=== PATIENT | female | born 1930 | race Native Hawaiian/Other Pacific Islander ===

== ENCOUNTER 2018-11-17 20:20 | Inpatient (IN) | payer MEDICARE, BC ==
--- NOTE | 2018-11-17 20:48 | ED PDOC ---
Arrival/HPI - General Chief Complaint: Dizziness/Lightheaded Time Seen by Provider: 11/17/18 20:47 Historian: Family (Son) - History of Present Illness Narrative History of Present Illness (Text): 11/17/18 20:47 An 88 year old female, whose past medical history includes HTN, HLD, DM, and emphysema, is brought into the emergency department by son for a complaint of sudden onset dizziness, nausea, and unsteady gait about 2 hours ago. The son notes that the patient was just sitting when the dizziness began. The patient is currently experiencing the dizziness, described as vertigo. The son also notes that at baseline patient does not speak well, but that there was no change in speech: No aphasia or dysarthria per family. No weakness / slurred speech. Patient's son also notes that the patient was complaining of shortness of breath, and heaviness in her chest. The patient denies any fever, chills, abdominal pain, nausea, vomiting, diarrhea, urinary symptoms, back pain, neck pain, headache, or any other complaints. Time/Duration: 1-3 hours Symptom Onset: Sudden Symptom Course: Unchanged Activities at Onset: Rest, Light Context: Home Past Medical History - Provider Review Nursing Documentation Reviewed: Yes - Infectious Disease Hx of Infectious Diseases: None - Tetanus Immunization Tetanus Immunization: Unknown - Reproductive Menopause: No - Cardiac Hx Hypertension: Yes - Pulmonary Hx Emphysema: Yes - Neurological Hx Neurological Disorder: No - HEENT Hx HEENT Disorder: No - Renal Hx Renal Disorder: No - Endocrine/Metabolic Hx Diabetes Mellitus Type 2: Yes - Hematological/Oncological Hx Blood Disorders: No - Integumentary Hx Dermatological Disorder: No - Musculoskeletal/Rheumatological Hx Falls: Yes - Gastrointestinal Hx Gastrointestinal Disorders: No - Genitourinary/Gynecological Hx Genitourinary Disorders: No - Psychiatric Hx Depression: No Hx Emotional Abuse: No Hx Physical Abuse: No Hx Substance Use: No - Past Surgical History Past Surgical History: No Previous - Anesthesia Hx Anesthesia: No Hx Anesthesia Reactions: No Hx Malignant Hyperthermia: No - Suicidal Assessment Feels Threatened In Home Enviroment: No Family/Social History - Physician Review Nursing Documentation Reviewed: Yes Family/Social History: No Known Family HX Smoking Status: Never Smoked Hx Alcohol Use: No Hx Substance Use: No Hx Substance Use Treatment: No Allergies/Home Meds Allergies/Adverse Reactions: Allergies shellfish derived Allergy (Verified 11/18/18 00:41) RASH shrimp Allergy (Verified 11/17/18 20:37) ITCHING Home Medications: Home Meds Medication Instructions Recorded Confirmed Glimepiride 4 mg PO BID 08/20/14 11/17/18 Simvastatin 20 mg PO DAILY 08/20/14 11/17/18 Albuterol 0.083% [Albuterol 0.083% 1 puff INH Q6H 11/17/18 11/17/18 Inhal Liz (2.5 mg/3 ml) UD] Losartan [Cozaar] 100 mg PO DAILY 11/17/18 11/17/18 RX: Ipratropium 0.02% [Atrovent] 1 puff INH Q6H 11/17/18 11/17/18 RX: Levothyroxine Sodium [Levoxyl] 50 mcg PO DAILY 11/17/18 11/17/18 RX: Repaglinide [Prandin] 0.5 mg PO DAILY 11/17/18 11/17/18 Review of Systems - Physician Review All systems were reviewed & negative as marked: Yes - Review of Systems Constitutional: absent: Fevers Respiratory: SOB. absent: Cough Cardiovascular: Chest Pain (Chest heaviness) Gastrointestinal: absent: Abdominal Pain, Diarrhea, Nausea, Vomiting Musculoskeletal: absent: Back Pain, Neck Pain Neurological: Dizziness. absent: Headache Physical Exam Vital Signs Reviewed: Yes Vital Signs Temp Pulse Resp BP Pulse Ox 11/17/18 20:35 98.6 F 100 H 18 174/90 H 96 Temperature: Afebrile Blood Pressure: Hypertensive Pulse: Tachycardic Respiratory Rate: Normal Appearance: Positive for: Well-Appearing, Non-Toxic, Comfortable Pain Distress: None Mental Status: No: Alert and Oriented X 3 (Alert. Non Oriented) - Systems Exam Head: Present: Atraumatic, Normocephalic Pupils: Present: PERRL Extroacular Muscles: Present: EOMI Conjunctiva: Present: Normal Mouth: Present: Moist Mucous Membranes Neck: Present: Normal Range of Motion Respiratory/Chest: Present: Clear to Auscultation, Good Air Exchange. No: Respiratory Distress, Accessory Muscle Use Cardiovascular: Present: Regular Rate and Rhythm, Normal S1, S2. No: Murmurs Abdomen: No: Tenderness, Distention, Peritoneal Signs Back: Present: Normal Inspection Upper Extremity: Present: Normal Inspection, Neurovascularly Intact, Other (5/5 strength). No: Cyanosis, Edema Lower Extremity: Present: Normal Inspection, Neurovascularly Intact, Other (5/5 strength). No: Edema Neurological: Present: GCS=15, CN II-XII Intact, Speech Normal, Motor Func Grossly Intact, Normal Sensory Function. No: Normal Cerebellar Funct (Abnormal cerebellar function. Dysmetria on finger to nose test.) Skin: Present: Warm, Dry, Normal Color. No: Rashes Psychiatric: Present: Alert, Normal Insight, Normal Concentration. No: Oriented x 3 (Non Oriented (baseline)) Medical Decision Making ED Course and Treatment: 11/17/18 21:05 Impression: An 88 year old female is brought into the emergency department by son for further evaluation of sudden onset dizziness 2 hours ago and mild shortness of breath and chest heaviness. Mild dysmetria on exam. NIHSS 1-2. At baseline pt d oes not speak much, no dysarthia or slurred speech. Code stroke called given possible posterior / cerebellar stroke. Plan: -- Head CT -- EKG -- CXR -- Labs -- IV Fluids -- Reassess and disposition Prior Visits: Notes and results from previous visits were reviewed. Progress Notes: 11/17/18 20:46: Code stroke called. EKG: Ordered, reviewed, and independently interpreted the EKG. Rate : 94 BPM Rhythm : NSR Interpretation : No STEMI EXAM: CT Head without Intravenous Contrast. IMPRESSION: 1. There is generalized parenchymal atrophy noted as demonstrated by symmetrical dilatation of ventricles and sulci. 2. Chronic periventricular and subcortical microvascular disease is seen. 3. No acute intracranial pathology. Electronically signed on Nov 17, 2018 9:47:13 PM EST by: Ashish Hollins M.D., DEWEY Certified By [facility] Fellowship Trained MRI and CT Specialist 11/17/18 22:00: On re-evaluation, all symptoms have resolved. Dysmetria resolved. No indication for TPA given resolution of symptoms at this time. Feeling much better and wants to go home. Family at bedside and note patient has a history of dementia recently discussed with Dr. Dewitt and they will decide if patient will stay or not. 11/17/18 22:03: Pt states she will stay. Case discussed with Dr. Nguyen. Recommends 81 mg Aspirin and MRI/MRA in the morning. 11/17/18 22:55: Pt in NAD Case discussed with Dr. Vernon (hospitalist) who accepts patient to his service. - Lab Interpretations I have reviewed the lab results: Yes - EKG Interpretation Interpreted by ED Physician: Yes Type: 12 lead EKG NIHSS Scale ([place]) Time Performed: 20:47 - How Severe is the Stoke Baseline Level of Consciousness: 0=Alert LOC to Questions: 1=One correct (baseline dementia, LOC at baseline) LOC to commands: 0=Obeys both correctly Best Gaze: 0=Normal Visual: 0=No visual loss Facial: 0=Normal Motor Arm - Left: 0=No drift Motor Arm - Right: 0=No drift Motor Leg - Left: 0=No drift Motor Leg - Right: 0=No drift Limb Ataxia: 1=Present Upper or Lower Sensory: 0=Normal Best Language: 0=No aphasia Dysarthia: 0=Normal articulation Extinction & Inattention (Neglect): 0=Normal, no object Score: 2 Risk Level: Minor Stroke Risk rTPA Inclusion/Exclusion - Refusal of Treatment Patient Refused Treatment: No - Inclusion Criteria for Altepase Patient is 18 years or Older: Yes The Clinical Diagnosis of Ischemic Stroke That is Causing a Potentially Disabling Neurological Deficit: No Time of Onset is Well Established to be Less Than 270 Minute Before Treatment Would Begin: Yes Risk/Benefit Discussed With Patient/Family Member Present: Yes - Exclusion Criteria for Altepase Uncontrolled Hypertension at Time of Treatment (Systolic BP above 185 or Diastolic BP above 110 mmHg): No - Scribe Statement The provider has reviewed the documentation as recorded by the Scribe Emmanuelle Storm Provider Scribe Attestation: All medical record entries made by the Scribe were at my direction and personally dictated by me. I have reviewed the chart and agree that the record accurately reflects my personal performance of the history, physical exam, medical decision making, and the department course for this patient. I have also personally directed, reviewed, and agree with the discharge instructions and disposition. Disposition/Present on Arrival - Present on Arrival Any Indicators Present on Arrival: No History of DVT/PE: No History of Uncontrolled Diabetes: No Urinary Catheter: No History of Decub. Ulcer: No History Surgical Site Infection Following: None - Disposition Have Diagnosis and Disposition been Completed?: Yes Diagnosis: TIA (transient ischemic attack) Disposition: HOSPITALIZED Disposition Time: 22:55 Condition: GOOD
[2018-11-17] MEDS ORDERED: Sodium Chloride 0.9% 1,000 ML IV SCH (21:00)
[2018-11-17 21:12] VITALS: BMI 20.1
[2018-11-17 21:53] LABS: BASO # 0.03 K/mm3 (0.0-2.0); BASO % 0.3 % (0.0-3.0); EOS # 0.2 (0.0-0.7); EOS % 1.6 % (1.5-5.0); GRAN # 7.46 (1.4-6.5); GRAN % 78.7 % (50.0-68.0); HEMOGLOBIN 12.3 g/dL (12.0-16.0); LYMPH % 10.8 % (22.0-35.0); MEAN CELL VOLUME 89.4 fl (80.0-105.0); MEAN CORPUSCULAR HEMOGLOBIN 30.3 pg (25.0-35.0); MEAN CORPUSCULAR HGB CONC 33.9 g/dl (31.0-37.0); MEAN PLATELET VOLUME 9.9 fl (7.0-11.0); MONO # 0.8 (0.1-0.6); MONO % 8.6 % (1.0-6.0); RBC 4.06 10^6/uL (3.5-6.1); WHITE BLOOD COUNT 9.5 10^3/uL (4.5-11.0)
[2018-11-17 22:01] LABS: ALB/GLOB RATIO 1.2 (1.1-1.8); ALBUMIN 4.1 g/dL (3.0-4.8); BLOOD UREA NITROGEN 30 mg/dL (7-21); CALCIUM 9.5 mg/dL (8.4-10.5); GFR NON-AFRICAN AMERICAN 59; HDL CHOLESTEROL 28 mg/dL (29-60); PARTIAL THROMBOPLASTIN TIME 29.6 Seconds (25.1-36.5); PROTHROMBIN TIME 11.4 SECONDS (9.4-12.5)
[2018-11-17 22:03] LABS: ALT/SGPT 20 U/L (7-56); AST/SGOT 26 U/L (14-36)
[2018-11-17 22:12] LABS: LDL CHOLESTEROL 74 mg/dL (0-129)
[2018-11-17 22:14] LABS: TROPONIN I < 0.01 ng/mL
--- NOTE | 2018-11-18 06:57 | CP.PCM.HP ---
History of Present Illness - History of Present Illness History of Present Illness: Nestor Land, PGY-1 Medicine H&P for Dr. Vernon CC: Dizziness, Lightheadedness Pt is an 88 to F with pmhx of HTN, HLD, DM, Dementia, and emphysema who presented to the ED for dizzness and lightheadedness. Pt at this time is AOx0 after being given multiple doses of ativan due to agitation. Pt has hx of baseline dementia and is unclear and confused at this time. No family at bedside to assist with hx. Pt ROS is unable to be assessed due to confusion. Hx obtained from chart review. Pmhx: HTN, HLD, DM, Dementia, and emphysema Pshx: Denies All: Shellfish - Rash, Shrimp - itching Social: Denies tobacco use, EtOH, or illicit drug use Fam Hx: Unable to obtain Present on Admission - Present on Admission Any Indicators Present on Admission: No Review of Systems - Review of Systems Systems not reviewed;Unavailable: Altered Mental Status (unable to assess 12 point ROS due to pt being AOx0, after given multiple doses of ativan upon baseline dementia.) Past Patient History - Infectious Disease Hx of Infectious Diseases: None - Tetanus Immunizations Tetanus Immunization: Unknown - Past Social History Smoking Status: Never Smoked - CARDIAC Hx Hypertension: Yes - PULMONARY Hx Emphysema: Yes - NEUROLOGICAL Hx Neurological Disorder: No - HEENT Hx HEENT Problems: No - RENAL Hx Chronic Kidney Disease: No - ENDOCRINE/METABOLIC Hx Diabetes Mellitus Type 2: Yes - HEMATOLOGICAL/ONCOLOGICAL Hx Blood Disorders: No - INTEGUMENTARY Hx Dermatological Problems: No - MUSCULOSKELETAL/RHEUMATOLOGICAL Hx Falls: Yes - GASTROINTESTINAL Hx Gastrointestinal Disorders: No - GENITOURINARY/GYNECOLOGICAL Hx Genitourinary Disorders: No - PSYCHIATRIC Hx Depression: No Hx Emotional Abuse: No Hx Physical Abuse: No Hx Substance Use: No - SURGICAL HISTORY Hx Surgeries: Yes (UNKNOWN SURGERY) - ANESTHESIA Hx Anesthesia: No Hx Anesthesia Reactions: No Hx Malignant Hyperthermia: No Meds Allergies/Adverse Reactions: Allergies Allergy/AdvReac Type Severity Reaction Status Date / Time shellfish derived Allergy RASH Verified 11/18/18 00:41 shrimp Allergy ITCHING Verified 11/17/18 20:37 Physical Exam - Constitutional Appears: Confused - Head Exam Head Exam: ATRAUMATIC, NORMAL INSPECTION, NORMOCEPHALIC - Eye Exam Eye Exam: EOMI, Normal appearance, PERRL - Respiratory Exam Respiratory Exam: Clear to Auscultation Bilateral, NORMAL BREATHING PATTERN. absent: Accessory Muscle Use, Decreased Breath Sounds, Rales, Rhonchi, Wheezes, Respiratory Distress, Stridor - Cardiovascular Exam Cardiovascular Exam: RRR, +S1, +S2. absent: Gallop, Rubs - GI/Abdominal Exam GI & Abdominal Exam: Normal Bowel Sounds, Soft. absent: Distended, Firm, Guarding, Tenderness - Extremities Exam Extremities exam: Positive for: normal capillary refill, pedal edema, pedal pulses present. Negative for: normal inspection, tenderness - Back Exam Back exam: NORMAL INSPECTION. absent: CVA tenderness (L), CVA tenderness (R) - Neurological Exam Neurological exam: Altered - Psychiatric Exam Additional comments: confused - Skin Skin Exam: Dry, Normal Color, Warm Results - Vital Signs Recent Vital Signs: Last Vital Signs Temp 97.7 F 11/18/18 02:45 Pulse 85 11/18/18 02:45 Resp 20 11/18/18 02:45 BP 170/83 H 11/18/18 02:45 Pulse Ox 96 11/18/18 02:45 - Labs Result Diagrams: 11/17/18 21:30 11/17/18 21:30 Labs: Laboratory Results - last 24 hr 11/17/18 11/17/18 11/17/18 20:49 21:30 21:30 WBC 9.5 RBC 4.06 Hgb 12.3 Hct 36.3 MCV 89.4 MCH 30.3 MCHC 33.9 RDW 12.0 Plt Count 258 MPV 9.9 Gran % 78.7 H Lymph % (Auto) 10.8 L [place] % (Auto) 8.6 H Eos % (Auto) 1.6 Baso % (Auto) 0.3 Gran # 7.46 H Lymph # (Auto) 1.0 L [place] # (Auto) 0.8 H Eos # (Auto) 0.2 Baso # (Auto) 0.03 PT 11.4 INR 1.00 APTT 29.6 Sodium Potassium Chloride Carbon Dioxide Anion Gap BUN Creatinine Est GFR ( Amer) Est GFR (Non-Af Amer) POC Glucose (mg/dL) 207 H Random Glucose Calcium Total Bilirubin AST ALT Alkaline Phosphatase Troponin I Total Protein Albumin Globulin Albumin/Globulin Ratio Triglycerides Cholesterol LDL Cholesterol Direct HDL Cholesterol Blood Type Antibody Screen BBK History Checked 11/17/18 11/18/18 21:30 00:40 WBC RBC Hgb Hct MCV MCH MCHC RDW Plt Count MPV Gran % Lymph % (Auto) [place] % (Auto) Eos % (Auto) Baso % (Auto) Gran # Lymph # (Auto) [place] # (Auto) Eos # (Auto) Baso # (Auto) PT INR APTT Sodium 138 Potassium 4.5 Chloride 101 Carbon Dioxide 27 Anion Gap 15 BUN 30 H Creatinine 0.9 Est GFR ( Amer) > 60 Est GFR (Non-Af Amer) 59 POC Glucose (mg/dL) Random Glucose 204 H Calcium 9.5 Total Bilirubin 0.3 AST 26 ALT 20 Alkaline Phosphatase 60 Troponin I < 0.01 Total Protein 7.5 Albumin 4.1 Globulin 3.4 Albumin/Globulin Ratio 1.2 Triglycerides 149 Cholesterol 118 L LDL Cholesterol Direct 74 HDL Cholesterol 28 L Blood Type O POSITIVE Antibody Screen Negative BBK History Checked No verified bt Assessment & Plan - Assessment and Plan (Free Text) Assessment: Pt is an 88 to F with pmhx of HTN, HLD, DM, Dementia, and emphysema who presented to the ED for dizzness and lightheadedness. Per ED note pts symptoms resolved in ED. Pt difficult to assess at this time due to underlying dementia and being given multiple doses of ativan. Plan: 1. TIA: - Head CT done in ED showed IMPRESSION: 1. There is generalized parenchymal atrophy noted as demonstrated by symmetrical dilatation of ventricles and sulci. 2. Chronic periventricular and subcortical microvascular disease is seen. 3. No acute intracranial pathology. - Pt had resolution of symptoms in ED. - Neurology consulted - Vitamin B12 - TSH - Neuro consult - Korya - Asa 81mg qd - Fall precaution 2. Hx of DM: - Hgb A1c - ISS- low 3. Hx of HTN: - Will hold off on puting BP meds back on due to pts recent TIA, will continue to monitor 4. Hx of HLD: - Lipitor 40mg 5. PPX: - GI: Protonix - DVT: Lovenox Case seen and discussed with Dr. Janeen Land PGY-1
[2018-11-18] MEDS ORDERED: Dextrose 50% SYRINGE Inj (50 ml) IV PRN (07:26)
[2018-11-18] MEDS ORDERED: Metoprolol 1 mg/ml Inj IVP PRN (08:05)
--- NOTE | 2018-11-18 08:49 | CT ---
Date of service: 11/17/2018 PROCEDURE: CT HEAD WITHOUT CONTRAST. HISTORY: Code Stroke COMPARISON: None available. TECHNIQUE: Axial computed tomography images were obtained through the head/brain without intravenous contrast. Radiation dose: Total exam DLP = 798.24 mGy-cm. This CT exam was performed using one or more of the following dose reduction techniques: Automated exposure control, adjustment of the mA and/or kV according to patient size, and/or use of iterative reconstruction technique. FINDINGS: HEMORRHAGE: No intracranial hemorrhage. BRAIN: No mass effect or edema. Atrophy. VENTRICLES: Unremarkable. No hydrocephalus. CALVARIUM: Unremarkable. PARANASAL SINUSES: Unremarkable as visualized. No significant inflammatory changes. MASTOID AIR CELLS: Unremarkable as visualized. No inflammatory changes. OTHER FINDINGS: None. IMPRESSION: No acute hemorrhage.
--- NOTE | 2018-11-18 08:56 | RAD ---
Date of service: 11/17/2018 HISTORY: Code Stroke COMPARISON: 01/12/2018 FINDINGS: LUNGS: No active pulmonary disease. PLEURA: No significant pleural effusion identified, no pneumothorax apparent. CARDIOVASCULAR: Aortic calcifications Normal cardiac size. No pulmonary vascular congestion. OSSEOUS STRUCTURES: No significant abnormalities. VISUALIZED UPPER ABDOMEN: Normal. OTHER FINDINGS: None. IMPRESSION: No active disease.
--- NOTE | 2018-11-18 09:23 | CARD ---
APPROVED REPORT Date of service: 11/17/2018 EKG Measurement Heart [id number] <Conclusion> Normal sinus rhythm LAD
[2018-11-18] MEDS ORDERED: Sodium Chloride 0.9% 1,000 ML IV SCH ×2 (10:30→10:31)
--- NOTE | 2018-11-18 12:34 | CP.PCM.CON ---
History of Present Illness - History of Present Illness History of Present Illness: As per chart: MIss Garsia is an 88 year old female, whose past medical history includes HTN, HLD, DM, and emphysema, is brought into the emergency department by son for a complaint of sudden onset dizziness, nausea, and unsteady gait abo ut 2 hours ago. The son notes that the patient was just sitting when the dizziness began. The patient is currently experiencing the dizziness, described as vertigo. On my exam, the patient appears quite uncomfortable, and is unable to sit up without feeling uncomfortable. There is no history of stroke, recent infection, or headache. PMH/pSH: as above. FH/SH: lives with family. No tobacco, no etoh. All: nkda. On exam: awake,not oriented. Son helped with exam. Follows one step commands. moves all extremities and tank washer is 5/5. There is no focal weakness. Gait is ataxic. sensory exam not accurate. +2 dtr ul and ll bl. Toes downgoing. No clonus. Past Patient History - Infectious Disease Hx of Infectious Diseases: None - Tetanus Immunizations Tetanus Immunization: Unknown - Past Social History Smoking Status: Never Smoked - CARDIAC Hx Hypertension: Yes - PULMONARY Hx Emphysema: Yes - NEUROLOGICAL Hx Neurological Disorder: No - HEENT Hx HEENT Problems: No - RENAL Hx Chronic Kidney Disease: No - ENDOCRINE/METABOLIC Hx Diabetes Mellitus Type 2: Yes - HEMATOLOGICAL/ONCOLOGICAL Hx Blood Disorders: No - INTEGUMENTARY Hx Dermatological Problems: No - MUSCULOSKELETAL/RHEUMATOLOGICAL Hx Falls: Yes - GASTROINTESTINAL Hx Gastrointestinal Disorders: No - GENITOURINARY/GYNECOLOGICAL Hx Genitourinary Disorders: No - PSYCHIATRIC Hx Depression: No Hx Emotional Abuse: No Hx Physical Abuse: No Hx Substance Use: No - SURGICAL HISTORY Hx Surgeries: Yes (UNKNOWN SURGERY) - ANESTHESIA Hx Anesthesia: No Hx Anesthesia Reactions: No Hx Malignant Hyperthermia: No Meds Allergies/Adverse Reactions: Allergies Allergy/AdvReac Type Severity Reaction Status Date / Time shellfish derived Allergy RASH Verified 11/18/18 00:41 shrimp Allergy ITCHING Verified 11/17/18 20:37 - Medications Medications: Current Medications Albuterol/Ipratropium (Duoneb 3 Mg/0.5 Mg (3 Ml) Ud) 3 ml IH [id number] CARLOS Aspirin (Ecotrin) 81 mg PO DAILY CARLOS Dextrose (Dextrose 50% Inj) 0 ml IV STAT PRN; Protocol PRN Reason: Hypoglycemia Protocol Enoxaparin Sodium (Lovenox) 40 mg SC DAILY CARLOS; Protocol Dextrose (Dextrose 5% In Water 1000 Ml) 1,000 mls @ 0 mls/hr IV .Q0M PRN; Protocol PRN Reason: Hypoglycemia Protocol Sodium Chloride (Sodium Chloride 0.9%) 1,000 mls @ 75 mls/hr IV .[id number] CARLOS Insulin Human Lispro (Humalog Low) 0 units SC ACHS CARLOS; Protocol Meclizine HCl (Antivert) 25 mg PO TID [facility] Metoprolol Tartrate (Lopressor) 5 mg IVP Q6H PRN PRN Reason: Systolic Blood Pressure Pantoprazole Sodium (Protonix Inj) 40 mg IVP DAILY [facility] Results - Vital Signs Recent Vital Signs: Last Vital Signs Temp 98 F 11/18/18 08:18 Pulse 97 H 11/18/18 08:18 Resp 20 11/18/18 08:18 BP 134/76 11/18/18 08:18 Pulse Ox 94 L 11/18/18 08:18 - Labs Result Diagrams: 11/17/18 21:30 11/17/18 21:30 Labs: Laboratory Results - last 24 hr 11/17/18 11/17/18 11/17/18 20:49 21:30 21:30 WBC 9.5 RBC 4.06 Hgb 12.3 Hct 36.3 MCV 89.4 MCH 30.3 MCHC 33.9 RDW 12.0 Plt Count 258 MPV 9.9 Gran % 78.7 H Lymph % (Auto) 10.8 L [place] % (Auto) 8.6 H Eos % (Auto) 1.6 Baso % (Auto) 0.3 Gran # 7.46 H Lymph # (Auto) 1.0 L [place] # (Auto) 0.8 H Eos # (Auto) 0.2 Baso # (Auto) 0.03 PT 11.4 INR 1.00 APTT 29.6 Sodium Potassium Chloride Carbon Dioxide Anion Gap BUN Creatinine Est GFR ( Amer) Est GFR (Non-Af Amer) POC Glucose (mg/dL) 207 H Random Glucose Hemoglobin A1c Calcium Total Bilirubin AST ALT Alkaline Phosphatase Troponin I Total Protein Albumin Globulin Albumin/Globulin Ratio Triglycerides Cholesterol LDL Cholesterol Direct HDL Cholesterol Vitamin B12 TSH 3rd Generation Blood Type Blood Type Confirm Antibody Screen BBK History Checked 11/17/18 11/17/18 11/18/18 21:30 21:30 00:40 WBC RBC Hgb Hct MCV MCH MCHC RDW Plt Count MPV Gran % Lymph % (Auto) [place] % (Auto) Eos % (Auto) Baso % (Auto) Gran # Lymph # (Auto) [place] # (Auto) Eos # (Auto) Baso # (Auto) PT INR APTT Sodium 138 Potassium 4.5 Chloride 101 Carbon Dioxide 27 Anion Gap 15 BUN 30 H Creatinine 0.9 Est GFR ( Amer) > 60 Est GFR (Non-Af Amer) 59 POC Glucose (mg/dL) Random Glucose 204 H Hemoglobin A1c 10.3 H Calcium 9.5 Total Bilirubin 0.3 AST 26 ALT 20 Alkaline Phosphatase 60 Troponin I < 0.01 Total Protein 7.5 Albumin 4.1 Globulin 3.4 Albumin/Globulin Ratio 1.2 Triglycerides 149 Cholesterol 118 L LDL Cholesterol Direct 74 HDL Cholesterol 28 L Vitamin B12 TSH 3rd Generation Blood Type O POSITIVE Blood Type Confirm Antibody Screen Negative BBK History Checked No verified bt 11/18/18 11/18/18 11/18/18 06:14 06:17 06:30 WBC RBC Hgb Hct MCV MCH MCHC RDW Plt Count MPV Gran % Lymph % (Auto) [place] % (Auto) Eos % (Auto) Baso % (Auto) Gran # Lymph # (Auto) [place] # (Auto) Eos # (Auto) Baso # (Auto) PT INR APTT Sodium Potassium Chloride Carbon Dioxide Anion Gap BUN Creatinine Est GFR ( Amer) Est GFR (Non-Af Amer) POC Glucose (mg/dL) Random Glucose Hemoglobin A1c Calcium Total Bilirubin AST ALT Alkaline Phosphatase Troponin I Total Protein Albumin Globulin Albumin/Globulin Ratio Triglycerides Cholesterol LDL Cholesterol Direct HDL Cholesterol Vitamin B12 185 L TSH 3rd Generation 3.41 Blood Type Blood Type Confirm O POSITIVE Antibody Screen BBK History Checked 11/18/18 08:05 WBC RBC Hgb Hct MCV MCH MCHC RDW Plt Count MPV Gran % Lymph % (Auto) [place] % (Auto) Eos % (Auto) Baso % (Auto) Gran # Lymph # (Auto) [place] # (Auto) Eos # (Auto) Baso # (Auto) PT INR APTT Sodium Potassium Chloride Carbon Dioxide Anion Gap BUN Creatinine Est GFR ( Amer) Est GFR (Non-Af Amer) POC Glucose (mg/dL) Random Glucose Hemoglobin A1c Calcium Total Bilirubin AST ALT Alkaline Phosphatase Troponin I < 0.01 Total Protein Albumin Globulin Albumin/Globulin Ratio Triglycerides Cholesterol LDL Cholesterol Direct HDL Cholesterol Vitamin B12 TSH 3rd Generation Blood Type Blood Type Confirm Antibody Screen BBK History Checked Assessment & Plan - Assessment and Plan (Free Text) Assessment: Cthead: normal, although there are basal ganglia calcifications. A/p: 88 yr old woman who has multiple stroke risk factors, now here for dizziness evaluation. I would recommend MRI Brain , echo, as well as CTA head and neck. Thank you Dr. phillips
[2018-11-18] MEDS: Insulin Lispro (humaLOG) LOW Coverage SC SCH ×4 (13:33→21:56)
[2018-11-18] MEDS: Enoxaparin 40 mg Syringe SC SCH (13:41)
[2018-11-18] MEDS: Albuterol-Ipratrop 3 mg / 0.5 (3 ml) UD IH SCH ×2 (13:54→22:20)
--- NOTE | 2018-11-18 14:39 | CP.PCM.PCO ---
Physician Communication Note - Physician Communication Note Physician Communication Note: CTA head/neck/MRI brain pending as per neuro, PT eval pending
--- NOTE | 2018-11-18 15:09 | CON ---
DATE: 11/18/2018 PULMONARY CONSULTATION REASON FOR PULMONARY CONSULTATION: Chronic obstructive pulmonary disease. REFERRING PHYSICIAN: Dr. Lau. SOURCE OF HISTORY: History is obtained via extensive discussion with the nurse. I have also discussed the case with the two sons at length. The patient does not appear to be an adequate historian. HISTORY OF PRESENT ILLNESS: The patient is an 88-year-old female, with past medical history significant for chronic obstructive pulmonary disease, hypertension, hyperlipidemia, diabetes mellitus, dementia, who was brought to [facility] - by the family - because of sudden onset of dizziness and lightheadedness. There were no focal signs noted. However, the patient was admitted for additional evaluation and treatment. Again, I did discuss the case with both of the sons at length. There is no history of shortness of breath at rest, dyspnea on exertion, cough, or sputum production. There is no history of chest pain, coughing up of blood, or chest pain - brought on with deep respirations.. There is no history of temperatures, chills or infectious exposure. There is no history of night sweats, weight loss or appetite change prior to the above events. No history of calf pains. No history of syncope or diaphoresis. No history of recent travel. No history of recent trauma. REVIEW OF SYSTEMS: The patient did have an episode of nausea at home. No diarrhea. No abdominal pain. No acute urinary symptoms. No new musculoskeletal complaints. Rest of the review of systems is negative. ALLERGIES: TO SHELLFISH AND SHRIMP. SOCIAL HISTORY: Negative for tobacco and negative for alcohol. FAMILY HISTORY: No inheritable diseases. MEDICATIONS: Home medications include albuterol and Atrovent nebulizer treatments, Levoxyl, Cozaar, glimepiride, simvastatin. PHYSICAL EXAMINATION: GENERAL: The patient appears comfortable this morning. She is not short of breath at rest. VITAL SIGNS: Temperature is 98, pulse 97, respirations 18/20, blood pressure 134/76. Oxygen saturation on room air is 94-96%. HEENT: Normocephalic, atraumatic. NECK: No JVD. CARDIOVASCULAR: Systolic ejection murmur at the lower left sternal border. No S3 gallop. LUNGS: Clear bilaterally. EXTREMITIES: No clubbing, cyanosis or edema. Calves are nontender to palpation. GASTROINTESTINAL: Abdomen is soft, nontender and nondistended. Bowel sounds are positive. SKIN: No acute rash. NEUROLOGIC: Exam limited at the present time. PERTINENT LABORATORY DATA: Chest x-ray was done yesterday and reviewed. There is no active pulmonary disease noted. Complete metabolic profile: BUN 30, glucose 204. Rest of the metabolic profile is within normal limits. CBC: White count 9.5K, hemoglobin 12.3, hematocrit 36.3, platelets of 258,000. IMPRESSION: 1. Dizziness, lightheadedness. 2. Chronic obstructive pulmonary disease. 3. Hypertension. 4. Diabetes mellitus. PLAN: Again, I did discuss the case with the nurse at length. I have also discussed the case with the two sons at length. I have also reviewed the chart at length. The patient presents to [facility] with main complaints of dizziness and lightheadedness - starting last night. Again, there are no focal signs noted. However, the patient was admitted for additional evaluation and treatment. Again, I did discuss the case with the sons at length. They offer NO acute pulmonary symptomatology at this point in time. I also reviewed the chest x-ray as above. It shows no acute disease. On physical exam, the patient's lungs are clear. In addition, the oxygen saturation on room air is 94-96%. I will continue the current nebulizer treatments for now. In addition, given the above, I will also order aspiration precautions. Neurology evaluation is ongoing. Internal Medicine input is noted. The patient appears somewhat improved this morning. Additional pulmonary intervention will be based on the clinical status of the patient. I will discuss the above with the attending physician. Thank you very much for this pulmonary consultation. Steve Rey MD ANIA
--- NOTE | 2018-11-18 16:18 | US ---
PROCEDURE: Bilateral carotid artery duplex ultrasound HISTORY: Carotid stenosis PHYSICIAN(S): Thony Rinaldi MD. TECHNIQUE: Duplex sonography and color-flow Doppler were used to evaluate the carotid bifurcations and limited segments of the vertebral arteries bilaterally. FINDINGS: The internal carotid arteries are tortuous There is mild smooth heterogeneous plaque noted at the carotid bifurcations bilaterally. The peak systolic velocity in the proximal right internal carotid artery is 77 cm/sec. This corresponds to a 20 to 39% proximal right ICA stenosis. Normal systolic velocities are noted in the proximal right external carotid artery. There is antegrade flow in the right vertebral artery. The peak systolic velocity in the proximal left internal carotid artery is 60 cm/sec. This corresponds to a 20 to 39% proximal left ICA stenosis. Normal systolic velocities are noted in the proximal left external carotid artery. There is antegrade flow in the left vertebral artery. IMPRESSION: 1. Bilateral 20-39% proximal ICA stenoses. 2. Antegrade flow in both vertebral arteries. 3. Limited study due to tortuosity
[2018-11-18] MEDS ORDERED: Iohexol 350 MG/100 ML VIAL ONE (16:40)
--- NOTE | 2018-11-18 18:33 | CT ---
Date of service: 11/18/2018 PROCEDURE: CT Angiography of the Brain. HISTORY: dizziness COMPARISON: Carotid ultrasound 02/13/2016. TECHNIQUE: CT angiography of the head and neck was performed following intravenous contrast administration. Coronal and sagittal maximum intensity projection reformatted images were generated. Contrast Dose: Omnipaque 300, 100 cc Radiation dose: Total exam DLP = 419.59 mGy-cm. This CT exam was performed using one or more of the following dose reduction techniques: Automated exposure control, adjustment of the mA and/or kV according to patient size, and/or use of iterative reconstruction technique. FINDINGS: INTERNAL CEREBRAL ARTERIES: Mild calcified atherosclerotic plaques in the bilateral cavernous internal artery segments which are nevertheless widely patent throughout. The skull base, petrous, and supraclinoid segments are bilaterally widely patent. ANTERIOR CEREBRAL ARTERIES: Unremarkable. A1 and A2 segments are widely patent. Smaller distal branches unremarkable, as visualized. MIDDLE CEREBRAL ARTERIES: Unremarkable. M1 and M2 segments are widely patent. Perisylvian branches grossly symmetric. POSTERIOR CIRCULATION: Basilar Artery: Unremarkable. Distal Vertebral Arteries: Right dominant vertebrobasilar circulation. Posterior Cerebral Arteries: Unremarkable. Posterior Inferior Cerebellar Arteries: Unremarkable. NECK CTA: Common Carotid arteries: The bilateral common carotid appear widely patent from their origins to their bifurcations with no significant stenosis appreciated. Trace atherosclerotic plaque identified partially calcified at the bilateral carotid bulbs. There is marked ectasis of the proximal right common carotid artery and mild ectasis of the left. No evidence to suggest common carotid artery dissection. Internal Carotid arteries: No significant stenosis is appreciated throughout the cervical internal carotid artery segments bilaterally and there is no evidence of dissection either. External Carotid arteries: Appear unremarkable bilaterally. Vertebral arteries: The bilateral vertebral arteries appear normal in caliber from their origins to their distal cervical segments. No significant stenosis or definite pattern of dissection. ANEURYSM/ VASCULAR MALFORMATIONS: None. OTHER FINDINGS: None. IMPRESSION: No occlusion or significant stenosis identified in CT angiography of the brain and neck. Limited calcified atherosclerosis bilateral cavernous internal artery segments as well as bilateral carotid bulbs.
--- NOTE | 2018-11-18 20:41 | CARD ---
APPROVED REPORT Date of service: 11/18/2018 EXAM: Two-dimensional and M-mode echocardiogram with Doppler and color Doppler. INDICATION CVA/TIA 2D DIMENSIONS Left Atrium (2D)2.9 (1.6-4.0cm)IVSd1.0 (0.7-1.1cm) LVDd3.9 (3.9-5.9cm)PWd1.0 (0.7-1.1cm) LVDs2.8 (2.5-4.0cm)FS (%) 27.9 % LVEF (%)54.7 (>50%) M-Mode DIMENSIONS Aortic Root2.90 (2.2-3.7cm)Aortic Cusp Exc.1.60 (1.5-2.0cm) Aortic Valve AoV Peak Nytalfaq79.9cm/Poornima Peak GR.3mmHg Mitral Valve MV E Ryclfveq61.3cm/sMV A Oshrlugx056.0cm/sE/A ratio0.6 TDI E/Lateral E'0.0E/Medial E'0.0 Tricuspid Valve TR Peak [id number]/sRAP [id number] Peak Gr.22mmHg [id number] LEFT VENTRICLE The left ventricle is normal size. There is normal left ventricular wall thickness. The left ventricular function is normal. The left ventricular ejection fraction is within the normal range. There is normal LV segmental wall motion. Transmitral Doppler flow pattern is Grade I-abnormal relaxation pattern. RIGHT VENTRICLE The right ventricle is normal size. There is normal right ventricular wall thickness. The right ventricular systolic function is normal. ATRIA The left atrium size is normal. The right atrium size is normal. The interatrial septum is intact with no evidence for an atrial septal defect. AORTIC VALVE The aortic valve is probably bicuspid. No aortic regurgitation is present. There is no aortic valvular stenosis. MITRAL VALVE The mitral valve is mildly thickened. There is no mitral valve regurgitation noted. There is no mitral valve stenosis. TRICUSPID VALVE There is trace tricuspid regurgitation. PULMONIC VALVE There is trace pulmonic valvular regurgitation. GREAT VESSELS The aortic root is normal in size. PERICARDIAL EFFUSION There is a trace pericardial effusion. <Conclusion> There is normal left ventricular wall thickness. The left ventricular function is normal. The left ventricular ejection fraction is within the normal range. There is normal LV segmental wall motion. Transmitral Doppler flow pattern is Grade I-abnormal relaxation pattern. The interatrial septum is intact
[2018-11-19] MEDS: Albuterol-Ipratrop 3 mg / 0.5 (3 ml) UD IH SCH ×4 (03:16→19:44)
[2018-11-19 07:06] LABS: HEMOGLOBIN 12.1 g/dL (12.0-16.0); MEAN CELL VOLUME 90.7 fl (80.0-105.0); MEAN CORPUSCULAR HEMOGLOBIN 29.6 pg (25.0-35.0); MEAN CORPUSCULAR HGB CONC 32.6 g/dl (31.0-37.0); MEAN PLATELET VOLUME 9.8 fl (7.0-11.0); RBC 4.09 10^6/uL (3.5-6.1); RED CELL DISTRIBUTION WIDTH 12.2 % (11.5-14.5); WHITE BLOOD COUNT 6.6 10^3/uL (4.5-11.0)
[2018-11-19 07:37] LABS: ALB/GLOB RATIO 1.2 (1.1-1.8); ALBUMIN 3.8 g/dL (3.0-4.8); ALT/SGPT 23 U/L (7-56); AST/SGOT 24 U/L (14-36); BLOOD UREA NITROGEN 19 mg/dL (7-21); CALCIUM 9.3 mg/dL (8.4-10.5); GFR NON-AFRICAN AMERICAN 59
--- NOTE | 2018-11-19 07:45 | PN ---
DATE: 11/19/2018 SUBJECTIVE: The patient appears comfortable this morning. She is not short of breath at rest. PHYSICAL EXAMINATION: GENERAL: She is awake and alert. VITAL SIGNS: Temperature is 98, pulse 78, respirations 18, blood pressure 158/90. Oxygen saturation on room air is 95%. HEENT: Normocephalic, atraumatic. No JVD. CARDIOVASCULAR: Systolic ejection murmur at the lower left sternal border. No S3 gallop. LUNGS: Clear bilaterally. GASTROINTESTINAL: Abdomen is soft, nontender and nondistended. Bowel sounds are positive. EXTREMITIES: No clubbing, cyanosis or edema. Calves are nontender to palpation. SKIN: No acute rash. NEUROLOGIC: Exam limited at the present time. IMPRESSION: 1. Dizziness, lightheadedness. 2. Chronic obstructive pulmonary disease. 3. Hypertension. 4. Diabetes mellitus. PLAN: The patient appears very comfortable this morning. She is not short of breath at rest. She appears much more awake and alert - compared to yesterday. I did discuss the case with the night nurse at length. The night nurse stated the patient had a very good night. On physical exam, the patient's lungs remain clear. In addition, the oxygen saturation on room air is 95%. I will continue the current nebulizer treatments for now. Input by Neurology is also noted. Repeat a.m. labs are pending. Clinical status of the patient appears significantly improved - compared to the initial presentation. I will discuss the above with the attending physician. Steve Rey MD MTDD
[2018-11-19] MEDS ORDERED: Levothyroxine 50 MCG TAB PO SCH ×2 (10:00→23:32)
[2018-11-19] MEDS: Enoxaparin 40 mg Syringe SC SCH (11:56)
[2018-11-19] MEDS: Insulin Lispro (humaLOG) LOW Coverage SC SCH ×4 (11:56→21:15)
--- NOTE | 2018-11-19 16:12 | CP.PCM.PN ---
<Zelalem Gutierrez - Last Filed: 11/19/18 16:55> Subjective - Date & Time of Evaluation Date of Evaluation: 11/19/18 Time of Evaluation: 16:00 - Subjective Subjective: Zelalem Gutierrez DO PGY1 Internal Medicine [employer] Patient was seen and examined at bedside Overnight patient was to get MRI however MRI was unable to be completed due to patient agitation. This morning , it was discussed w/ family that patient can go to [facility] as per PT recoommendations. Family is currently refusing and wants to take patient home. Benefits of [facility] were discussed at length w/ family; however family remained unagreeable. Patient voicing no complaints this morning. Tolerating diet well, moving bowels well. Objective - Vital Signs/Intake and Output Vital Signs (last 24 hours): Temp Pulse Resp BP Pulse Ox 97.5 F L 100 H 20 138/72 97 11/19/18 07:56 11/19/18 10:00 11/19/18 07:56 11/19/18 07:56 11/19/18 07:56 Intake and Output: 11/19/18 11/19/18 06:59 18:59 Intake Total 120 Balance 120 - Medications Medications: Current Medications Albuterol/Ipratropium (Duoneb 3 Mg/0.5 Mg (3 Ml) Ud) 3 ml IH [id number] [facility] Last Admin: 11/19/18 14:04 Dose: 3 ml Aspirin (Ecotrin) 81 mg PO DAILY [facility] Last Admin: 11/19/18 11:56 Dose: Not Given Atorvastatin Calcium (Lipitor) 20 mg PO DIN [facility] Dextrose (Dextrose 50% Inj) 0 ml IV STAT PRN; Protocol PRN Reason: Hypoglycemia Protocol Enoxaparin Sodium (Lovenox) 40 mg SC DAILY [facility]; Protocol Last Admin: 11/19/18 11:56 Dose: 40 mg Glimepiride (Amaryl) 4 mg PO DAILY [facility] Last Admin: 11/19/18 11:55 Dose: 4 mg Dextrose (Dextrose 5% In Water 1000 Ml) 1,000 mls @ 0 mls/hr IV .Q0M PRN; Protocol PRN Reason: Hypoglycemia Protocol Insulin Human Lispro (Humalog Low) 0 units SC ACHS [facility]; Protocol Last Admin: 11/19/18 11:57 Dose: 4 units Levothyroxine Sodium (Synthroid) 50 mcg PO DAILY [facility] Last Admin: 11/19/18 11:57 Dose: Not Given Losartan Potassium (Cozaar) 100 mg PO DAILY [facility] Last Admin: 11/19/18 11:56 Dose: Not Given Meclizine HCl (Antivert) 25 mg PO TID PRN PRN Reason: Dizziness Metoprolol Tartrate (Lopressor) 5 mg IVP Q6H PRN PRN Reason: Systolic Blood Pressure Last Admin: 11/18/18 18:58 Dose: 5 mg Pantoprazole Sodium (Protonix Inj) 40 mg IVP DAILY [facility] Last Admin: 11/19/18 11:57 Dose: Not Given - Labs Labs: 11/19/18 06:00 11/19/18 06:00 PT 11.4 SECONDS (9.4-12.5) 11/17/18 21:30 INR 1.00 11/17/18 21:30 APTT 29.6 Seconds (25.1-36.5) 11/17/18 21:30 Physical Exam - Constitutional Appears: Comfortable - Head Exam Head Exam: ATRAUMATIC, NORMAL INSPECTION, NORMOCEPHALIC - Eye Exam Eye Exam: EOMI, Normal appearance, PERRL - Respiratory Exam Respiratory Exam: CTABL, No respiratory distress, Breathing comfortable - Cardiovascular Exam Cardiovascular Exam: RRR, +S1, +S2. absent: Gallop, Rubs - GI/Abdominal Exam GI & Abdominal Exam: Normal Bowel Sounds, Soft. absent: Distended, Firm, Guarding, Tenderness - Extremities Exam Extremities exam: Positive for: normal capillary refill, pedal edema, pedal pulses present. Negative for: normal inspection, tenderness - Back Exam Back exam: NORMAL INSPECTION. absent: CVA tenderness (L), CVA tenderness (R) - Neurological Exam Neurological exam: Awake, Alert - Psychiatric Exam Additional comments: Confused, not oriented to self, situation, location, or time. - Skin Skin Exam: Dry, Normal Color, Warm Assessment and Plan - Assessment and Plan (Free Text) Assessment: Pt is an 88 to F with pmhx of HTN, HLD, DM, Dementia, and emphysema who presented to the ED for dizzness and lightheadedness. Pt. was admitted for evaluation of TIA. Per documentation and exams; symptoms upon admission have resolved. Plan: Dizziness/Lightheadedness - R/O TIA: 11/17 - Head CT done in ED showed IMPRESSION: 1. There is generalized par enchymal atrophy noted as demonstrated by symmetrical dilatation of ventricles and sulci. 2. Chronic periventricular and subcortical microvascular disease is seen. 3. No acute intracranial pathology. No further complaints/ symptoms at this time Continues to show confusion throughout hospital course B12 Low; Start B12 1000mg QD TSH wnl Neurology recommends MRI Brain + Echo 11/18/18 - ECHO - WNL MRI unable to be completed yesterday Asa 81mg qd Fall precaution Neuro Following, Appreciate reccs Hx of DM: Hgb A1c Start home glimepiride 4 QD ISS- low ACHS Hx of HTN: Will hold off on puting BP meds back on due to pts recent TIA, will continue to monitor Hx of HLD: Lipitor 40mg 5. PPX: - GI: Protonix - DVT: Lovenox Dispo: PT Reccs LEONOR Patient was seen, examined, an discussed w/ attending Dr. Judi Gutierrez DO PGY1 Internal medicine [employer] <Elba Lau - Last Filed: 11/20/18 17:31> Objective - Vital Signs/Intake and Output Vital Signs (last 24 hours): Temp Pulse Resp BP Pulse Ox 98 F 86 18 162/48 H 96 11/20/18 08:38 11/20/18 08:38 11/20/18 08:38 11/20/18 08:38 11/20/18 08:38 Intake and Output: 11/20/18 11/20/18 06:59 18:59 Intake Total 120 Balance 120 - Labs Labs: 11/20/18 06:00 11/20/18 06:00 PT 11.4 SECONDS (9.4-12.5) 11/17/18 21:30 INR 1.00 11/17/18 21:30 APTT 29.6 Seconds (25.1-36.5) 11/17/18 21:30 Attending/Attestation - Attestation I have personally seen and examined this patient.: Yes I have fully participated in the care of the patient.: Yes I have reviewed all pertinent clinical information, including history, physical exam and plan: Yes Notes (Text): 11/20/18 17:27 Attending note; Patient seen and examined with resident. Patient is alert and awake. Oriented to place. Patient's son by the bedside. Patient is an 88 -year-old female with pmhx of HTN, HLD, DM, Dementia, and emphysema who presented to the ED for dizzness and lightheadedness. Pt. was admitted for evaluation of TIA. CT head is negative. CTA head and neck is negative. Echocardiogram without significant abnormality. Continue aspirin, Lipitor. Patient did not tolerate MRI. neurology evaluation appreciated. PT evaluation appreciated. Recommending subacute rehabilitation. Hypertension; continue Cozaar. Diabetes; continue Amaryl and Prandin. Monitor fingerstick closely. Case discussed with patient's family in detail. Patient's family refused subacute rehabilitation. We will get repeat PT evaluati on today. Case discussed with PMD in detail. Patient's family is advised to talk to PMD for further recommendations. Upon discharge the patient will follow-up with PMD Dr. Alvarez. Time spent over 45 minutes explaining to the family about the discharge plan during multiple encounters.
[2018-11-19 16:47] VITALS: O2SAT 96
[2018-11-20] MEDS: Albuterol-Ipratrop 3 mg / 0.5 (3 ml) UD IH SCH ×2 (01:03→08:55)
[2018-11-20] MEDS ORDERED: Pantoprazole 40 mg Susp UD PO SCH (06:00)
[2018-11-20 06:22] LABS: HEMOGLOBIN 13.6 g/dL (12.0-16.0); MEAN CELL VOLUME 90.4 fl (80.0-105.0); MEAN CORPUSCULAR HEMOGLOBIN 30.4 pg (25.0-35.0); MEAN CORPUSCULAR HGB CONC 33.6 g/dl (31.0-37.0); MEAN PLATELET VOLUME 9.8 fl (7.0-11.0); RBC 4.48 10^6/uL (3.5-6.1); RED CELL DISTRIBUTION WIDTH 12.1 % (11.5-14.5); WHITE BLOOD COUNT 8.2 10^3/uL (4.5-11.0)
[2018-11-20 06:48] LABS: ALB/GLOB RATIO 1.4 (1.1-1.8); ALBUMIN 4.5 g/dL (3.0-4.8); ALT/SGPT 23 U/L (7-56); AST/SGOT 20 U/L (14-36); BLOOD UREA NITROGEN 23 mg/dL (7-21); CALCIUM 10.1 mg/dL (8.4-10.5); GFR NON-AFRICAN AMERICAN 59
[2018-11-20] MEDS: Insulin Lispro (humaLOG) LOW Coverage SC SCH (08:34)
[2018-11-20 08:39] VITALS: BP 162/48; PULSE 86; RESP 18; TEMP 98
--- NOTE | 2018-11-20 09:19 | PN ---
DATE: 11/20/2018 PULMONARY NOTE SUBJECTIVE: The patient appears very comfortable this morning. She is not short of breath at rest. OBJECTIVE: VITAL SIGNS: Temperature is 97.7, pulse this morning is 88, respiratory rate 18, blood pressure 149/78. Oxygen saturation on room air 96%-97%. HEENT: Normocephalic, atraumatic. NECK: No JVD. CARDIOVASCULAR: Systolic ejection murmur at the lower left sternal border. No S3 gallop. LUNGS: Clear bilaterally. GASTROINTESTINAL: Abdomen is soft, nontender and nondistended. Bowel sounds are positive. EXTREMITIES: No clubbing, cyanosis, or edema. Calves are nontender to palpation. SKIN: No acute rash. NEUROLOGIC: Limited at the present time. IMPRESSION: 1. Dizziness, lightheadedness. 2. Chronic obstructive pulmonary disease. 3. Hypertension. 4. Diabetes mellitus. PLAN: The patient appears very comfortable this morning. She is not short of breath at rest. She is awake and alert. However, she is confused. I did discuss the case with the night nurse and aide at length. On physical exam, the patient's lungs remain clear. In addition, the oxygen saturation on room air is now 96%-97%. I will continue the current nebulizer treatments and aspiration precautions for now. Neurology evaluation is ongoing. Inputs are noted. Clinical status of the patient does appear improved - compared to the initial presentation. However, the future status/prognosis for this patient does remain guarded. I will discuss the above with the attending physician. Steve Rey MD [email or web address]
[2018-11-20] MEDS: Enoxaparin 40 mg Syringe SC SCH (09:46)
--- NOTE | 2018-11-20 12:21 | CP.PCM.PN ---
Subjective - Date & Time of Evaluation Date of Evaluation: 11/20/18 Time of Evaluation: 07:30 - Subjective Subjective: Neurology Consult note for Dr. Camden Mehta PGY2 Patient seen and examined at bedside today in no acute distress. Patient was initially seen trying to leave room stating she is waiting for her son to get her so she can go home. Patient states she slept well overnight. Denies dizziness, headaches, weakness, vision changes. Objective - Vital Signs/Intake and Output Vital Signs (last 24 hours): Temp Pulse Resp BP Pulse Ox 98 F 86 18 162/48 H 96 11/20/18 08:38 11/20/18 08:38 11/20/18 08:38 11/20/18 08:38 11/20/18 08:38 Intake and Output: 11/20/18 11/20/18 06:59 18:59 Intake Total 120 Balance 120 - Medications Medications: Current Medications Albuterol/Ipratropium (Duoneb 3 Mg/0.5 Mg (3 Ml) Ud) 3 ml IH [id number] [facility] Last Admin: 11/20/18 08:55 Dose: Not Given Aspirin (Ecotrin) 81 mg PO DAILY [facility] Last Admin: 11/20/18 09:46 Dose: 81 mg Atorvastatin Calcium (Lipitor) 20 mg PO DIN [facility] Last Admin: 11/19/18 17:27 Dose: 20 mg Cyanocobalamin (Vitamin B12 1000 Mcg Tab) 1,000 mcg PO DAILY [facility] Last Admin: 11/20/18 09:46 Dose: 1,000 mcg Dextrose (Dextrose 50% Inj) 0 ml IV STAT PRN; Protocol PRN Reason: Hypoglycemia Protocol Enoxaparin Sodium (Lovenox) 40 mg SC DAILY [facility]; Protocol Last Admin: 11/20/18 09:46 Dose: 40 mg Glimepiride (Amaryl) 4 mg PO DAILY [facility] Last Admin: 11/20/18 09:46 Dose: 4 mg Dextrose (Dextrose 5% In Water 1000 Ml) 1,000 mls @ 0 mls/hr IV .Q0M PRN; Protocol PRN Reason: Hypoglycemia Protocol Insulin Human Lispro (Humalog Low) 0 units SC ACHS [facility]; Protocol Last Admin: 11/20/18 08:34 Dose: 2 units Levothyroxine Sodium (Synthroid) 50 mcg PO ACB [facility] Last Admin: 11/20/18 08:00 Dose: 50 mcg Losartan Potassium (Cozaar) 100 mg PO DAILY [facility] Last Admin: 11/20/18 09:46 Dose: 100 mg Meclizine HCl (Antivert) 25 mg PO TID PRN PRN Reason: Dizziness Metoprolol Tartrate (Lopressor) 5 mg IVP Q6H PRN PRN Reason: Systolic Blood Pressure Last Admin: 11/18/18 18:58 Dose: 5 mg Pantoprazole Sodium (Protonix Susp) 40 mg PO 0600 [facility] Last Admin: 11/20/18 06:26 Dose: Not Given - Labs Labs: 11/20/18 06:00 11/20/18 06:00 PT 11.4 SECONDS (9.4-12.5) 11/17/18 21:30 INR 1.00 11/17/18 21:30 APTT 29.6 Seconds (25.1-36.5) 11/17/18 21:30 - Head Exam Head Exam: ATRAUMATIC, NORMAL INSPECTION, NORMOCEPHALIC - Eye Exam Eye Exam: EOMI - ENT Exam ENT Exam: Mucous Membranes Moist - Respiratory Exam Respiratory Exam: Clear to Ausculation Bilateral, NORMAL BREATHING PATTERN - Cardiovascular Exam Cardiovascular Exam: REGULAR RHYTHM, +S1, +S2 - GI/Abdominal Exam GI & Abdominal Exam: Soft, Normal Bowel Sounds - Neurological Exam Neurological Exam: Alert, Awake, Oriented x3 Neuro motor strength exam: Left Upper Extremity: 5, Right Upper Extremity: 5, Left Lower Extremity: 5, Right Lower Extremity: 5 - Psychiatric Exam Psychiatric exam: Normal Affect - Skin Skin Exam: Normal Color, Warm Assessment and Plan - Assessment and Plan (Free Text) Assessment: -F/U MRI Brain -Echo: EF 54% -CTA head and neck: no occlusion or significant stenosis noted
--- NOTE | 2018-11-20 15:27 | CP.PCM.DIS ---
<Anshul Orr - Last Filed: 11/20/18 15:33> Provider - Provider Date of Admission: 11/17/18 22:54 Attending physician: Elba Lau MD Primary care physician: Tess Alvarez MD Consults: 11/17/18 20:47 Stroke Team Consult Stat Comment: Consulting Provider: Neurohospitalist Consulting Physician: NEUROHOSP Neurohospitalist for Consult: Sam Nguyen Neurohospitalist for Consult: Saroj Hannah Reason for Consult: dizziness 11/18/18 02:11 Case Management Referral Routine Comment: Physician Instructions: Reason For Exam: Reason for Referral: Discharge Planning Inpatient CAMP DIRECTOR Core Measures Referral Routine Comment: Physician Instructions: Reason For Exam: hx copd, hypothyroid, dimentia Transition In Care/Readmission Reduction Routine Comment: Physician Instructions: Reason For Exam: hx copd, hypothyeoid, dimentia 11/18/18 02:17 Social Work Referral Routine Comment: lives with son Physician Instructions: Reason For Exam: discharge planning 11/18/18 02:20 Nursing Referral for Palliative Care Routine Comment: patient very confused Physician Instructions: Reason For Exam: dimentia 11/18/18 06:55 Neurology Consult Routine Comment: Consulting Provider: Sam Nguyen Consulting Physician: Sam Nguyen Reason for Consult: TIA 11/18/18 10:31 Consult [Physician Consult] Routine Comment: Consulting Provider: Bryson Anton Consulting Physician: Bryson Anton Reason for Consult: COPD Time Spent in preparation of Discharge (in minutes): 45 Diagnosis - Discharge Diagnosis (1) Dementia Status: Chronic (2) Hypertension Status: Chronic (3) Hyperlipidemia Status: Chronic (4) Emphysema of lung Status: Chronic (5) TIA (transient ischemic attack) Status: Acute (6) Vitamin B12 deficiency Status: Acute Hospital Course - Lab Results Lab Results: Most Recent Lab Values WBC 8.2 10^3/uL (4.5-11.0) D 11/20/18 06:00 RBC 4.48 10^6/uL (3.5-6.1) 11/20/18 06:00 Hgb 13.6 g/dL (12.0-16.0) 11/20/18 06:00 Hct 40.5 % (36.0-48.0) 11/20/18 06:00 MCV 90.4 fl (80.0-105.0) 11/20/18 06:00 MCH 30.4 pg (25.0-35.0) 11/20/18 06:00 MCHC 33.6 g/dl (31.0-37.0) 11/20/18 06:00 RDW 12.1 % (11.5-14.5) 11/20/18 06:00 Plt Count 305 10^3/uL (120.0-450.0) 11/20/18 06:00 MPV 9.8 fl (7.0-11.0) 11/20/18 06:00 Gran % 78.7 % (50.0-68.0) H 11/17/18 21:30 Lymph % (Auto) 10.8 % (22.0-35.0) L 11/17/18 21:30 Nolan % (Auto) 8.6 % (1.0-6.0) H 11/17/18 21:30 Eos % (Auto) 1.6 % (1.5-5.0) 11/17/18 21:30 Baso % (Auto) 0.3 % (0.0-3.0) 11/17/18 21:30 Gran # 7.46 (1.4-6.5) H 11/17/18 21:30 Lymph # (Auto) 1.0 (1.2-3.4) L 11/17/18 21:30 Nolan # (Auto) 0.8 (0.1-0.6) H 11/17/18 21:30 Eos # (Auto) 0.2 (0.0-0.7) 11/17/18 21:30 Baso # (Auto) 0.03 K/mm3 (0.0-2.0) 11/17/18 21:30 PT 11.4 SECONDS (9.4-12.5) 11/17/18 21:30 INR 1.00 11/17/18 21:30 APTT 29.6 Seconds (25.1-36.5) 11/17/18 21:30 Sodium 141 mmol/L (132-148) 11/20/18 06:00 Potassium 4.1 mmol/L (3.6-5.0) 11/20/18 06:00 Chloride 100 mmol/L (98-107) 11/20/18 06:00 Carbon Dioxide 31 mmol/L (21-33) 11/20/18 06:00 Anion Gap 14 (10-20) 11/20/18 06:00 BUN 23 mg/dL (7-21) H 11/20/18 06:00 Creatinine 0.9 mg/dl (0.7-1.2) 11/20/18 06:00 Est GFR ( Amer) > 60 11/20/18 06:00 Est GFR (Non-Af Amer) 59 11/20/18 06:00 POC Glucose (mg/dL) 206 mg/dL (65-110) H 11/19/18 21:14 Random Glucose 209 mg/dL (70-110) H 11/20/18 06:00 Hemoglobin A1c 10.3 % (4.2-6.5) H 11/17/18 21:30 Calcium 10.1 mg/dL (8.4-10.5) 11/20/18 06:00 Total Bilirubin 0.5 mg/dL (0.2-1.3) 11/20/18 06:00 AST 20 U/L (14-36) 11/20/18 06:00 ALT 23 U/L (7-56) 11/20/18 06:00 Alkaline Phosphatase 75 U/L (38-126) 11/20/18 06:00 Troponin I < 0.01 ng/mL 11/18/18 08:05 Total Protein 7.8 g/dL (5.8-8.3) 11/20/18 06:00 Albumin 4.5 g/dL (3.0-4.8) 11/20/18 06:00 Globulin 3.3 gm/dL 11/20/18 06:00 Albumin/Globulin Ratio 1.4 (1.1-1.8) 11/20/18 06:00 Triglycerides 149 mg/dL (35-160) 11/17/18 21:30 Cholesterol 118 mg/dL (130-200) L 11/17/18 21:30 LDL Cholesterol Direct 74 mg/dL (0-129) 11/17/18 21:30 HDL Cholesterol 28 mg/dL (29-60) L 11/17/18 21:30 Vitamin B12 185 pg/mL (239-931) L 11/18/18 06:14 TSH 3rd Generation 3.41 mIU/mL (0.46-4.68) 11/18/18 06:17 Blood Type O POSITIVE 11/18/18 00:40 Blood Type Confirm O POSITIVE 11/18/18 06:30 Antibody Screen Negative 11/18/18 00:40 BBK History Checked No verified bt 11/18/18 00:40 - Hospital Course Hospital Course: HPI at time of admission: "Pt is an 88 yo F with PMhx of HTN, HLD, DM, Dementia, and emphysema who presented to the ED for dizziness and lightheadedness. Pt at this time is AOx0 after being given multiple doses of ativan due to agitation. Pt has hx of baseline dementia and is unclear and confused at this time. No family at bedside to assist with hx. Pt ROS is unable to be assessed due to confusion. Hx obtained from chart review." Hospital Course: Pertinent imaging: Head CT 11/17: 1. There is generalized parenchymal atrophy noted as demonstrated by symmetrical dilatation of ventricles and sulci. 2. Chronic periventricular and subcortical microvascular disease is seen. 3. No acute intracranial pathology. EKG 11/17: NSR at HR 94 bpm, no acute St-t wave changes noted CXR 11/17: no active disease CTA Head/Neck 11/18: no occlusion or significant stenosis identified in CT angio of brain and neck. Limited calcified atherosclerosis b/l cavernous internal artery segments as well as b/l carotid bulbs. Carotid doppler 11/18: b/l 20-39% proximal ICA stenoses, anterograde flow in both vertebral arteries, limited study due to tortuosity. Echo 11/18: normal ejection fraction Pt was admitted for work-up of TIA and dizziness/lightheadedness. Pt had baseline history of dementia and demonstrated confusion during entire hospital admission, however symptoms improved during stay. Neurology was consulted (Dr. Nguyen), who recommended imaging work-up for TIA. Pt was started on ASA inpatient. Pt was found to have low B12 on work-up, and was started on B12 for therapy. Pt was also medically managed for hx Type II DM, HTN, and HLD. Pt was discharged to home in stable condition on 11/20/18. Upon discussion with pt's family of risks and benefits of further management, pt's sons refused to have pt admitted to sub-acute rehab/TCU for further PT services. Pt's sons were instructed to bring pt to appt to f/u with Dr. Alvarez within 3- 5 days of hospital discharge. Also instructed to follow-up with primary physician for outpatient MRI. Pt was started on new home meds ASA and Vitamin B12 on discharge. Pt's family was also given script for outpatient PT on discharge for pt. Also family was instructed to monitor pt's fingersticks regularly at home for management of Diabetes. Pt was also sent home with instruction for advanced bite sized food with thin liquids to reduce risk of aspiration. Discharge Exam - Head Exam Head Exam: ATRAUMATIC, NORMAL INSPECTION, NORMOCEPHALIC - Eye Exam Eye Exam: EOMI, Normal appearance, PERRL - ENT Exam ENT Exam: Mucous Membranes Moist - Respiratory Exam Respiratory Exam: Clear to PA & Lateral, NORMAL BREATHING PATTERN, UNREMARKABLE. absent: Rales, Rhonchi, Wheezes - Cardiovascular Exam Cardiovascular Exam: REGULAR RHYTHM, +S1, +S2. absent: Gallop, Rubs, Systolic Murmur - GI/Abdominal Exam GI & Abdominal Exam: Normal Bowel Sounds, Soft, Unremarkable. absent: Guarding, Organomegaly, Tenderness - Extremities Exam Extremities exam: full ROM, normal capillary refill, normal inspection, pedal pulses present - Neurological Exam Neurological exam: Alert, CN II-XII Intact Additional comments: AAOx1 - Skin Skin Exam: Dry, Intact, Normal Color, Warm Discharge Plan - Discharge Medications Prescriptions: Aspirin [Ecotrin] 81 mg PO DAILY #30 tabec Cyanocobalamin [Vitamin B12 1000 mcg Tab] 1,000 mcg PO DAILY #30 tab - Follow Up Plan Condition: GOOD Disposition: HOME/ ROUTINE Instructions: Preventing Falls in the Older Adult, Transient Ischemic Attack (DC), Low Blood Sugar, Adult (DC), Hyperglycemia, Adult (DC), Blood Glucose Monitoring, How to Keep Track of Your Blood Sugar Additional Instructions: Please follow up with Dr. Alvarez (your primary care doctor) within 3-5 days of discharge. You have 2 new medications which were brought to you by the bedside. 1. Aspirin 81mg (FOR STROKE PREVENTION) ONCE BY MOUTH DAILY 2. Vitamin B12 (for Low VITAMIN B12) ONCE BY MOUTH DAILY Continue all other home medications as prescribed. You were given a prescription for physical therapy as outpatient. You can follow up with Dr. Alvarez for outpatient open brain MRI. Recommend for family to check patient's blood sugars regularly. Recommend bite size food with thin liquids to reduce risk of aspiration. If patient's symptoms return, please go to the nearest emergency department. Referrals: Tess Nguyen MD [Primary Care Provider] - <Elba Lau - Last Filed: 11/20/18 17:33> Provider - Provider Date of Admission: 11/17/18 22:54 Attending physician: Elba Lau MD Primary care physician: Tess Alvarez MD Consults: 11/17/18 20:47 Stroke Team Consult Stat Comment: Consulting Provider: Neurohospitalist Consulting Physician: NEUROHOSP Neurohospitalist for Consult: Sam Nguyen Neurohospitalist for Consult: Saroj Hannah Reason for Consult: dizziness 11/18/18 02:11 Case Management Referral Routine Comment: Physician Instructions: Reason For Exam: Reason for Referral: Discharge Planning Inpatient CAMP DIRECTOR Core Measures Referral Routine Comment: Physician Instructions: Reason For Exam: hx copd, hypothyroid, dimentia Transition In Care/Readmission Reduction Routine Comment: Physician Instructions: Reason For Exam: hx copd, hypothyeoid, dimentia 11/18/18 02:17 Social Work Referral Routine Comment: lives with son Physician Instructions: Reason For Exam: discharge planning 11/18/18 02:20 Nursing Referral for Palliative Care Routine Comment: patient very confused Physician Instructions: Reason For Exam: dimentia 11/18/18 06:55 Neurology Consult Routine Comment: Consulting Provider: Sam Nguyen Consulting Physician: Sam Nguyen Reason for Consult: TIA 11/18/18 10:31 Consult [Physician Consult] Routine Comment: Consulting Provider: Bryson Anton Consulting Physician: Bryson Anton Reason for Consult: COPD Hospital Course - Lab Results Lab Results: Most Recent Lab Values WBC 8.2 10^3/uL (4.5-11.0) D 11/20/18 06:00 RBC 4.48 10^6/uL (3.5-6.1) 11/20/18 06:00 Hgb 13.6 g/dL (12.0-16.0) 11/20/18 06:00 Hct 40.5 % (36.0-48.0) 11/20/18 06:00 MCV 90.4 fl (80.0-105.0) 11/20/18 06:00 MCH 30.4 pg (25.0-35.0) 11/20/18 06:00 MCHC 33.6 g/dl (31.0-37.0) 11/20/18 06:00 RDW 12.1 % (11.5-14.5) 11/20/18 06:00 Plt Count 305 10^3/uL (120.0-450.0) 11/20/18 06:00 MPV 9.8 fl (7.0-11.0) 11/20/18 06:00 Gran % 78.7 % (50.0-68.0) H 11/17/18 21:30 Lymph % (Auto) 10.8 % (22.0-35.0) L 11/17/18 21:30 Nolan % (Auto) 8.6 % (1.0-6.0) H 11/17/18 21:30 Eos % (Auto) 1.6 % (1.5-5.0) 11/17/18 21:30 Baso % (Auto) 0.3 % (0.0-3.0) 11/17/18 21:30 Gran # 7.46 (1.4-6.5) H 11/17/18 21:30 Lymph # (Auto) 1.0 (1.2-3.4) L 11/17/18 21:30 Nolan # (Auto) 0.8 (0.1-0.6) H 11/17/18 21:30 Eos # (Auto) 0.2 (0.0-0.7) 11/17/18 21:30 Baso # (Auto) 0.03 K/mm3 (0.0-2.0) 11/17/18 21:30 PT 11.4 SECONDS (9.4-12.5) 11/17/18 21:30 INR 1.00 11/17/18 21:30 APTT 29.6 Seconds (25.1-36.5) 11/17/18 21:30 Sodium 141 mmol/L (132-148) 11/20/18 06:00 Potassium 4.1 mmol/L (3.6-5.0) 11/20/18 06:00 Chloride 100 mmol/L (98-107) 11/20/18 06:00 Carbon Dioxide 31 mmol/L (21-33) 11/20/18 06:00 Anion Gap 14 (10-20) 11/20/18 06:00 BUN 23 mg/dL (7-21) H 11/20/18 06:00 Creatinine 0.9 mg/dl (0.7-1.2) 11/20/18 06:00 Est GFR ( Amer) > 60 11/20/18 06:00 Est GFR (Non-Af Amer) 59 11/20/18 06:00 POC Glucose (mg/dL) 214 mg/dL (65-110) H 11/20/18 11:06 Random Glucose 209 mg/dL (70-110) H 11/20/18 06:00 Hemoglobin A1c 10.3 % (4.2-6.5) H 11/17/18 21:30 Calcium 10.1 mg/dL (8.4-10.5) 11/20/18 06:00 Total Bilirubin 0.5 mg/dL (0.2-1.3) 11/20/18 06:00 AST 20 U/L (14-36) 11/20/18 06:00 ALT 23 U/L (7-56) 11/20/18 06:00 Alkaline Phosphatase 75 U/L (38-126) 11/20/18 06:00 Troponin I < 0.01 ng/mL 11/18/18 08:05 Total Protein 7.8 g/dL (5.8-8.3) 11/20/18 06:00 Albumin 4.5 g/dL (3.0-4.8) 11/20/18 06:00 Globulin 3.3 gm/dL 11/20/18 06:00 Albumin/Globulin Ratio 1.4 (1.1-1.8) 11/20/18 06:00 Triglycerides 149 mg/dL (35-160) 11/17/18 21:30 Cholesterol 118 mg/dL (130-200) L 11/17/18 21:30 LDL Cholesterol Direct 74 mg/dL (0-129) 11/17/18 21:30 HDL Cholesterol 28 mg/dL (29-60) L 11/17/18 21:30 Vitamin B12 185 pg/mL (239-931) L 11/18/18 06:14 TSH 3rd Generation 3.41 mIU/mL (0.46-4.68) 11/18/18 06:17 Blood Type O POSITIVE 11/18/18 00:40 Blood Type Confirm O POSITIVE 11/18/18 06:30 Antibody Screen Negative 11/18/18 00:40 BBK History Checked No verified bt 11/18/18 00:40 Attending/Attestation - Attestation I have personally seen and examined this patient.: Yes I have fully participated in the care of the patient.: Yes I have reviewed all pertinent clinical information, including history, physical exam and plan: Yes Notes (Text): 11/20/18 17:31 Attending note; Patient seen and examined with resident. Patient is alert and awake. Oriented to place. Patient's son by the bedside. Patient is an 88 -year-old female with pmhx of HTN, HLD, DM, Dementia, and emphysema who presented to the ED for dizzness and lightheadedness. Pt. was admitted for evaluation of TIA. CT head is negative. CTA head and neck is negative. Echocardiogram without significant abnormality. Continue aspirin, Lipitor. Patient did not tolerate MRI. neurology evaluation appreciated. PT evaluation appreciated. Recommending subacute rehabilitation. Progressive dementia; patient needs continuous monitoring. Advised to follow-up with neurology as outpatient. Hypertension; continue Cozaar. Diabetes; continue Amaryl Monitor fingerstick closely. Advised to check fingerstick daily. Adjust medication as needed. Patient's family refused subacute rehabilitation again today. Case discussed with PMD in detail. Patient's family discussed the discharge plan with PMD. Decided to take the patient home with home services. manager quantitative's help appreciated in discharge planning and arranging home services. Prescription for physical therapy given. Upon discharge the patient will follow-up with PMD Dr. Alvarez.
== END 2018-11-20 13:25 | disposition home health service (06) | DRG 69 ==
LOC: ED 20:20 → ERH 22:54 → 3RSO 11-18 00:12
PROVIDERS: ADMIT Internal Medicine; ATTEND Internal Medicine
PROC: 3E0F7GC Introduction of Other Therapeutic Substance into Respiratory Tract, Via Natural or Artificial Opening (ICD-10-PCS; principal; 2018-11-18)
DX: G45.9 Transient cerebral ischemic attack, unspecified (principal); E11.9 Type 2 diabetes mellitus without complications; R27.8 Other lack of coordination; F03.90 Unspecified dementia, unspecified severity, without behavioral disturbance, psychotic disturbance, mood disturbance, and anxiety; J43.9 Emphysema, unspecified; I10 Essential (primary) hypertension; E78.5 Hyperlipidemia, unspecified; R45.1 Restlessness and agitation; E53.8 Deficiency of other specified B group vitamins; Z79.84 Long term (current) use of oral hypoglycemic drugs; Z79.899 Other long term (current) drug therapy